=== PATIENT | male | born 1970 | race Caucasian/White ===

== ENCOUNTER 2018-01-28 15:56 | Emergency (ER) | payer MEDICARE, MEDICAID ==
[~2018-01-28] VITALS: Ht 172.7 cm; Wt 90.7 kg
[~2018-01-28 15:56] MED LIST: ATIVAN1 MG PO; DEPAKENE250 MG PO; KEPPRA 500 MG500 M1 PO; LANSOPRAZOLE30 MG PO; LEXAPRO20 MG PO; NICOTINE TRANSD21 M1 TRANSDERM; PERCOCET 7.5-31 EACH PO; PERCOCET PO; SEROQUEL 50 MG50 MG PO; TYLENOL325 MG PO
[2018-01-28 16:23] LABS: ABSOLUTE BASOPHILS 0.1 thou/uL (0.0-0.2); ABSOLUTE EOSINOPHILS 0.2 thou/uL (0.0-0.7); ABSOLUTE LYMPHOCYTES 1.8 thou/uL (0.8-5.3); ABSOLUTE MONOCYTES 0.5 thou/uL (0.0-1.2); ABSOLUTE NEUTROPHILS 10.9 thou/uL (1.6-8.1); BASOPHILS 0.9 %; EOSINOPHILS 1.4 %; HEMATOCRIT 40.2 % (42.0-52.0); HEMOGLOBIN 13.4 gm/dL (14.0-18.0); LYMPHOCYTES 13.4 %; MCH 31.5 pg (26.0-34.0); MCHC 33.3 g/dL (28.0-37.0); MCV 94.6 fL (80.0-100.0); MONOCYTES 3.6 %; MPV 7.1 fl. (7.2-11.1); NUCLEATED RBCS 0 /100WBC; PLATELET COUNT* 384 thou/uL (150-400); POLYS 80.7 %; RBC 4.25 mil/uL (4.50-6.00); WBC 13.5 thou/uL (4.0-11.0)
[2018-01-28] MEDS ORDERED: OXYCODONE HCL 55 MG PO (16:35)
[2018-01-28] MEDS ORDERED: VALIUM5 MG PO (16:39)
[2018-01-28] MEDS ORDERED: GABAPENTIN 100100 MG PO (16:39)
[2018-01-28] MEDS ORDERED: PRINIVIL20 MG PO (16:40)
[2018-01-28] MEDS ORDERED: LIPITOR80 MG PO (16:40)
[2018-01-28] MEDS ORDERED: HYDROCHLOROTHIA25 M2 PO (16:40)
[2018-01-28] MEDS ORDERED: IBUPROFEN 600600 M1 PO (16:41)
[2018-01-28] MEDS ORDERED: GLUCOPHAGE XR500 MG PO (16:41)
[2018-01-28] MEDS ORDERED: KLONOPIN0.5 MG PO (16:42)
[2018-01-28] MEDS ORDERED: TORADOL 10 MG T10 MG PO (16:43)
[2018-01-28] MEDS ORDERED: DOXEPIN HCL150 MG PO (16:43)
[2018-01-28] MEDS ORDERED: STOOL SOFTENER1 EAC2 PO (16:43)
[2018-01-28] MEDS ORDERED: HEMORRHOIDAL CR51 G1 TOP (16:45)
[2018-01-28] MEDS ORDERED: PERCOCET PO (16:46)
[2018-01-28] MEDS ORDERED: VIAGRA50 MG PO (16:46)
[2018-01-28 16:58] LABS: ANION GAP 11 mmol/L (7-16); BUN 10 mg/dL (7-18); CALCIUM 8.3 mg/dL (8.5-10.1); CHLORIDE 102 mmol/L (98-107); CO2 24 mmol/L (21-32); CREATININE 1.3 mg/dL (0.6-1.3); GLUCOSE 183 mg/dL (70-99); POTASSIUM 4.4 mmol/L (3.5-5.1); SODIUM 137 mmol/L (136-145)
[2018-01-28 17:05] LABS: ALBUMIN 3.3 g/dL (3.4-5.0); ALKALINE PHOSPHATASE 113 U/L (46-116); SGOT 26 U/L (15-37); SGPT 29 U/L (30-65); TOTAL BILIRUBIN 0.3 mg/dL (<0.1-1.0); TOTAL PROTEIN 7.3 g/dL (6.4-8.2); TROPONIN-I LEVEL <0.06 ng/mL (<0.06)
[2018-01-28 17:49] VITALS: BP 135/83
--- NOTE | 2018-01-29 11:40 | EKG ---
[place] [address] ELECTROCARDIOGRAM REPORT Name: RYLEE JOHNSON Room: [facility]#: [id number] Admission: 01/28/18 Attend Phys: Discharge: 01/28/18 Date of : 70 Report #: [id number] THIS REPORT FOR: //name// [facility] ED Test Date: 2018-01-28 Test Time: 16:03:17 Pat Name: RYLEE JOHNSON Department: Room: Gender: [employer]st: : 1970 Requested By: Layo Wylie Order Number: [id number] MD: Ap Singh Measurements Intervals [place] Rate: 71 P: 45 AR: 206 QRS: 70 QRSD: 110 T: 55 QT: 389 QTc: 423 Interpretive Statements Sinus rhythm Borderline prolonged AR interval Compared to ECG 09/19/2014 19:01:16 No significant changes Electronically Signed On 01-29-2018 11:40:33 CDT by Ap Singh [email or web address] <ELECTRONICALLY SIGNED> By: Ap Singh MD, [facility] 01/29/18 1140 1603 1603 Ap Singh MD, FACC /EPI
== END 2018-01-28 17:50 | disposition home or self-care (01) ==
LOC: M.ERS 15:56
PROVIDERS: Family Medicine
DX: R56.9 Unspecified convulsions (principal)

== ENCOUNTER 2018-06-07 21:55 | Emergency (ER) | payer MEDICARE ==
[~2018-06-07 21:55] MED LIST changes: +DOXEPIN HCL150 MG PO; +GABAPENTIN 100100 MG PO; +GLUCOPHAGE XR500 MG PO; +HEMORRHOIDAL CR51 G1 TOP; +HYDROCHLOROTHIA25 M2 PO; +IBUPROFEN 600600 M1 PO; +KLONOPIN0.5 MG PO; +LIPITOR80 MG PO; +OXYCODONE HCL 55 MG PO; +PRINIVIL20 MG PO; +STOOL SOFTENER1 EAC2 PO; +TORADOL 10 MG T10 MG PO; +VALIUM5 MG PO; +VIAGRA50 MG PO
== END 2018-06-07 22:07 | disposition left against medical advice (07) ==
LOC: M.ERS 21:55
DX: Z53.21 Procedure and treatment not carried out due to patient leaving prior to being seen by health care provider (principal)

== ENCOUNTER 2020-05-30 01:56 | Emergency (ER) | payer OTHER | END 2020-05-30 02:24 | LOC: M.ERS 01:56 | DX: Z02.89 Encounter for other administrative examinations (principal) ==